=== PATIENT | male | born 1965 | race Hispanic/Latino ===

== ENCOUNTER 2022-10-13 10:19 | Emergency (ER) | payer OTHER ==
[2022-10-13] MEDS ORDERED: ONDANSETRON 4 MG/2 ML VIAL ONE (10:39)
[2022-10-13] MEDS ORDERED: MORPHINE 4 MG/ML SYR ONE (10:39)
[2022-10-13 10:51] LABS: Absolute Lymphocytes (CBC) 1.1 K/uL (0.7-4.9); Hematocrit 43.3 % (39.6-49.0); Lymphocytes % 8.9 % (15.3-44.8); MCV 88.8 fL (80-100); MPV 9.4 fL (7.6-11.3); RBC Red Blood Cell Count 4.87 M/uL (4.33-5.43)
[2022-10-13 10:58] LABS: Urine Blood 3+ (Negative); Urine Glucose Negative (Negative); Urine Protein Negative (Negative); Urine Specific Gravity <=1.005 (1.005-1.030); Urine pH 5.5 (5.0-7.0)
[2022-10-13 11:08] LABS: Urine Bacteria None Seen /HPF (<20); Urine Mucus Slight /HPF (None Seen); Urine RBC <5 /HPF (None Seen)
[2022-10-13 11:08] LABS: Albumin 3.9 g/dL (3.4-5.0); Bilirubin Total 0.3 mg/dL (0.2-1.0); Potassium 3.6 mmol/L (3.5-5.1); Protein, Total 7.2 g/dL (6.4-8.2)
--- NOTE | 2022-10-13 11:24 | RAD REPORT ---
EXAM DESCRIPTION: CT - Stone Protocol - 10/13/2022 11:03 am CLINICAL HISTORY: Flank pain. right flank pain COMPARISON: No comparisons TECHNIQUE: Axial images were obtained without oral or IV contrast. Lack of contrast limits solid org an and vascular assessment. The [id number] spans the entirety of the system partially obscuring uppermost abdomen and lung bases. Coronal reformatted images were obtained and reviewed. All CT scans are performed using dose optimization technique as appropriate and may include automated exposure control or mA/KV adjustment according to patient size. FINDINGS: The lower lung mason are clear. Imaged portions of the liver and spleen show no suspicious findings on non-contrast imaging.Cholecyst ectomy clips. The pancreas and adrenal glands are normal. No pathologic lymphadenopathy in the abdome n or pelvis. 3 mm calculus is seen distal right ureter resulting in mild right hydronephrosis. Punctate calculus i s seen upper pole calyx right kidney as well. Punctate inferior stones in the left kidney. No left-si ded hydronephrosis. No bowel obstruction, free air, free fluid or abscess. Normal appendix noted. No significant bony abnormality. IMPRESSION: 3 mm calculus distal right ureter resulting in mild right hydronephrosis. Additional punctate bilateral nephrolithiasis without hydronephrosis.
[2022-10-13] MEDS ORDERED: KETOROLAC 30 MG/ML INJ ONE (11:39)
[2022-10-13] MEDS ORDERED: TAMSULOSIN 0.4 MG SR CAP ONE (11:39)
[2022-10-13] MEDS ORDERED: MAGNESIUM SULFATE 1 gm IVPB 1 GM/100 ML BAG IV ONE (11:40)
[2022-10-13] MEDS ORDERED: MAGNES/ALUMIN/SIMET 30ML UCUP ONE (12:51)
[2022-10-13] MEDS ORDERED: PANTOPRAZOLE 40 MG INJ ONE (12:52)
[2022-10-13] MEDS ORDERED: LIDOCAINE VISCOUS 2% SOLN 15 ML UDC ONE (12:52)
--- NOTE | 2022-10-13 14:05 | ER ---
Nurse's Notes [facility] Name: David Mancini Age: 57 yrs Sex: Male : 1965 Arrival Date: 10/13/2022 Time: 10:22 Bed 8 Private MD: Diagnosis: Urinary calculus, unspecified;Calculus of ureter Presentation: 10/13 10:26 Chief complaint: Right flank pain, blood in urine, and difficulty urinating x 5 days. hb Coronavirus screen: At this time, the client does not indicate any symptoms associated with coronavirus-19. Ebola Screen: No symptoms or risks identified at this time. Initial Sepsis Screen: Does the patient meet any 2 criteria? No. Patient's initial sepsis screen is negative. Does the patient have a suspected source of infection? No. Patient's initial sepsis screen is negative. Risk Assessment: Do you want to hurt yourself or someone else? Patient reports no desire to harm self or others. Onset of symptoms was October 09, 2022. 10:26 Method Of Arrival: Ambulatory hb 10:26 Acuity: LETICIA 3 hb Historical: - Allergies: 10:27 No Known Allergies; hb - Immunization history:: Adult Immunizations up to date. - Social history:: Smoking status: Patient denies any tobacco usage or history of. - Family history:: not pertinent. - Hospitalizations: : No recent hospitalization is reported. Screenin:14 [facility] ED Fall Risk Assessment (Adult) History of falling in the last 3 months, sg5 including since admission No falls in past 3 months (0 pts). Abuse screen: Denies threats or abuse. Nutritional screening: No deficits noted. Tuberculosis screening: No symptoms or risk factors identified. Assessment: 11:07 General: Appears comfortable, Behavior is calm, cooperative, appropriate for age. Pain: sg5 Complains of pain in right flank Pain currently is 1 out of 10 on a pain scale. at worst was 6 out of 10 on a pain scale. Quality of pain is described as sharp, shooting. Neuro: No deficits noted. Level of Consciousness is awake, alert, obeys commands, Oriented to person, place, time, situation, Appropriate for age. Cardiovascular: No deficits noted. Heart tones S1 S2 present Capillary refill < 3 seconds. Respiratory: No deficits noted. Airway is patent. GI: Reports bloody stool, since August 2022. Colonoscopy done in [facility]. Yesterday had lab work done in the [place] for bloody stools awaiting results by . Patient reports nausea with right flank pain. : Reports pain with urination. EENT: No deficits noted. No signs and/or symptoms were reported regarding the EENT system. Derm: No deficits noted. No signs and/or symptoms reported regarding the dermatologic system. Musculoskeletal: No deficits noted. No signs and/or symptoms reported regarding the musculoskeletal system. Vital Signs: 10:26 BP 142 / 94; Pulse 60; Resp 16; Temp 97.7; Pulse Ox 100% on R/A; Weight 76.2 kg; Height hb 5 ft. 8 in. ; Pain 8/10; 11:06 BP 164 / 94; Pulse 60; Resp 18; Pulse Ox 100% ; sg5 12:10 BP 147 / 84; Pulse 47; Resp 16; Pulse Ox 98% on R/A; Pain 2/10; sg5 12:57 BP 162 / 84; Pulse 50; Resp 16; Pulse Ox 98% on R/A; Pain 3/10; sg5 13:48 BP 131 / 85; Pulse 60; Resp 16; Pulse Ox 98% on R/A; Pain 0/10; sg5 10:26 Body Mass Index 25.54 (76.20 kg, 172.72 cm) hb 10:26 Pain Scale: Adult hb 12:10 Pain Scale: Adult sg5 12:57 Pain Scale: Adult sg5 13:48 Pain Scale: Adult sg5 ED Course: 10:22 Patient arrived in ED. am2 10:25 Jose Palacios MD is Attending Physician. rn 10:27 Triage completed. hb 10:27 Arm band placed on. hb 10:33 Genevieve Romero, ARNAUD is Primary Nurse. ld1 10:40 Inserted saline lock: 20 gauge in right antecubital area, using aseptic technique. sg5 11:04 CT Stone Protocol In Process Unspecified. EDMS 11:14 Patient has correct armband on for positive identification. Bed in low position. Call sg5 light in reach. Side rails up X 1. Adult w/ patient. Administered Medications: 10:48 Drug: morphine IVP or IV 4 mg Route: IVP; Infused Over: 4 mins; Site: right antecubital;sg5 10:48 Drug: Ondansetron IVP 4 mg Route: IVP; Site: right antecubital; sg5 11:36 Drug: Magnesium Sulfate IVPB 1 grams Route: IVPB; Infused Over: 1 hrs; Site: right sg5 antecubital; 12:49 Follow up: Response: No adverse reaction; IV Intake: 100ml sg5 11:36 Drug: Ketorolac IVP 30 mg Route: IVP; Site: right antecubital; sg5 11:36 Drug: Flomax PO 0.4 mg Route: PO; sg5 12:49 Drug: GI Cocktail without - (Maalox PO Suspension 30 ml, Lidocaine Mucous sg5 Membrane Liquid 2 % 15 ml) Route: PO; 12:49 Drug: Pantoprazole IVP 40 mg Route: IVP; Site: right antecubital; sg5 Medication: 11:14 VIS not applicable for this client. sg5 Intake: 12:49 IV: 100ml; Total: 100ml. sg5 Outcome: 14:04 Discharge ordered by . rn Signatures: Dispatcher [employer] EDJose Kessler MD MD rn Baxter, Heather, RN RN hb Moreno, Amanda amGenevieve Villalta RN RN ld1 Sugar Montague RN RN sg5 Corrections: (The following items were deleted from the chart) 10:49 10:49 Inserted saline lock: 20 gauge in right antecubital area, using aseptic sg5 technique. sg5 12:10 11:06 BP 164 / 94; Pulse 18bpm; Resp 65bpm; Pulse Ox 100%; ld1 sg5 12:11 11:06 BP 147 / 84; Pulse 47bpm; Resp 16bpm; Pulse Ox 98% RA; Pain 09/11, Adult; sg5 sg5
--- NOTE | 2022-10-13 14:05 | EDPHYS ---
Physician Documentation [facility] Name: David Mancini Age: 57 yrs Sex: Male : 1965 Arrival Date: 10/13/2022 Time: 10:22 Bed 8 Private MD: ED Physician Jose Palacios HPI: 10/13 10:32 This 57 yrs old Male presents to ER via Ambulatory with complaints of Flank rn Pain, Pain With Urination. 10:32 The patient complains of pain in the right mid back. The pain radiates. Onset: The rn symptoms/episode began/occurred 5 day(s) ago. Modifying factors: The symptoms are alleviated by nothing. the symptoms are aggravated by nothing. Associated signs and symptoms: Pertinent positives: dysuria, nausea, Pertinent negatives: fever, hematuria, pain radiating to the lower extremities, vomiting. Severity of pain: At its worst the pain was moderate in the emergency department the pain is unchanged. The patient has not experienced similar symptoms in the past. The patient has been recently seen by a physician:. 10:32 Reports seen by pcp out of town recently, told had blood in urine, right flank pain rn that began 5 days ago, got better, now returned since last night. No medical problems, no known history of kidney stones. No trauma.. Historical: - Allergies: 10:27 No Known Allergies; hb - Immunization history:: Adult Immunizations up to date. - Social history:: Smoking status: Patient denies any tobacco usage or history of. - Family history:: not pertinent. - Hospitalizations: : No recent hospitalization is reported. ROS: 10:32 Constitutional: Negative for fever, chills, and weight loss, Cardiovascular: Negative rn for chest pain, palpitations, and edema, Respiratory: Negative for shortness of breath, cough, wheezing, and pleuritic chest pain, Abdomen/GI: Negative for abdominal pain, nausea, vomiting, diarrhea, and constipation, Back: + right flank pain : + dysuria MS/Extremity: Negative for injury and deformity, Skin: Negative for injury, rash, and discoloration, Neuro: Negative for headache, weakness, numbness, tingling, and seizure. Exam: 10:32 Constitutional: This is a well developed, well nourished patient who is awake, alert, rn and in no acute distress. Cardiovascular: Regular rate and rhythm. No pulse deficits. Respiratory: No increased work of breathing, no retractions or nasal flaring. Abdomen/GI: Soft, mild RLQ tenderness, no rebound Skin: Warm, dry MS/ Extremity: Pulses equal, no cyanosis. Neuro: Awake and alert, GCS 15 Vital Signs: 10:26 BP 142 / 94; Pulse 60; Resp 16; Temp 97.7; Pulse Ox 100% on R/A; Weight 76.2 kg; Height hb 5 ft. 8 in. ; Pain 8/10; 11:06 BP 164 / 94; Pulse 60; Resp 18; Pulse Ox 100% ; sg5 12:10 BP 147 / 84; Pulse 47; Resp 16; Pulse Ox 98% on R/A; Pain 2/10; sg5 12:57 BP 162 / 84; Pulse 50; Resp 16; Pulse Ox 98% on R/A; Pain 3/10; sg5 13:48 BP 131 / 85; Pulse 60; Resp 16; Pulse Ox 98% on R/A; Pain 0/10; sg5 10:26 Body Mass Index 25.54 (76.20 kg, 172.72 cm) hb 10:26 Pain Scale: Adult hb 12:10 Pain Scale: Adult sg5 12:57 Pain Scale: Adult sg5 13:48 Pain Scale: Adult sg5 MDM: 10:25 Patient medically screened. rn 13:58 Differential diagnosis: nephrolithiasis, ruptured AAA, dissecting AAA. Data reviewed: rn vital signs, nurses notes, lab test result(s), radiologic studies, CT scan, and as a result, I will discharge patient. Counseling: I had a detailed discussion with the patient and/or guardian regarding: the historical points, exam findings, and any diagnostic results supporting the discharge/admit diagnosis, lab results, radiology results, the need for outpatient follow up, to return to the emergency department if symptoms worsen or persist or if there are any questions or concerns that arise at home. Response to treatment: the patient's symptoms have markedly improved after treatment, and as a result, I will discharge patient. Special discussion: I discussed with the patient/guardian in detail that at this point there is no indication for admission to the hospital. It is understood, however, that if the symptoms persist or worsen the patient needs to return immediately for re-evaluation. Based on the history and exam findings, there is no indication for further emergent testing or inpatient evaluation. I discussed with the patient/guardian the need to see the primary care provider for further evaluation of the symptoms. ED course: Pain resolved, feels much better, CT shows distal small ureteral stone, will dc home with return precautions. . 10/13 10:32 Order name: IV Saline Lock; Complete Time: 10:48 rn 10/13 10:32 Order name: Urine Dipstick-Ancillary (obtain specimen); Complete Time: 11: rn 10/13 10:32 Order name: Labs collected and sent; Complete Time: 11: rn 10/13 10:32 Order name: CBC with Diff; Complete Time: 11: rn 10/13 10:32 Order name: CMP; Complete Time: 11: rn 10/13 10:32 Order name: Lipase; Complete Time: 11: rn 10/13 10:32 Order name: Urine Microscopic Only; Complete Time: 11: rn 10/13 10:32 Order name: CT Stone Protocol; Complete Time: 11: rn 10/13 10:58 Order name: Urine Dipstick-Ancillary; Complete Time: 11:29 EDMS Administered Medications: 10:48 Drug: morphine IVP or IV 4 mg Route: IVP; Infused Over: 4 mins; Site: right antecubital;sg5 10:48 Drug: Ondansetron IVP 4 mg Route: IVP; Site: right antecubital; sg5 11:36 Drug: Magnesium Sulfate IVPB 1 grams Route: IVPB; Infused Over: 1 hrs; Site: right sg5 antecubital; 12:49 Follow up: Response: No adverse reaction; IV Intake: 100ml sg5 11:36 Drug: Ketorolac IVP 30 mg Route: IVP; Site: right antecubital; sg5 11:36 Drug: Flomax PO 0.4 mg Route: PO; sg5 12:49 Drug: GI Cocktail without - (Maalox PO Suspension 30 ml, Lidocaine Mucous sg5 Membrane Liquid 2 % 15 ml) Route: PO; 12:49 Drug: Pantoprazole IVP 40 mg Route: IVP; Site: right antecubital; sg5 Disposition Summary: 10/13/22 14:04 Discharge Ordered Location: Home rn Problem: new rn Symptoms: have improved rn Condition: Stable rn Diagnosis - Urinary calculus, unspecified rn - Calculus of ureter rn Followup: rn - With: Private Physician - When: As needed - Reason: Recheck today's complaints, Re-evaluation by your physician Forms: - Medication Reconciliation Form rn - Thank You Letter rn - Antibiotic sample patternmaker - Prescription Opioid Use rn Signatures: Dispatcher [employer] EDJose Kessler MD MD rn Baxter, Heather RN Sugar Elizabeth RN RN sg5
[2022-10-13 17:26] VITALS: TEMP 97.7
[2022-10-13 17:29] VITALS: O2SAT 98
[2022-10-13 17:34] VITALS: BP 108/87
== END 2022-10-13 14:19 | disposition home or self-care (01) ==
LOC: ER 10:19
DX: N20.9 Urinary calculus, unspecified (principal); N20.1 Calculus of ureter
CPT/HCPCS: 96365; 85025; 36415; 83690; 80053; 76377; 74176; 96375; 99284; 96366; J3475; C9113; J2405; 81003; 81015